=== PATIENT | male | born 1975 | race Caucasian/White ===

== ENCOUNTER 2022-01-07 14:30 | Emergency (ER) | payer OTHER ==
--- NOTE | 2022-01-07 15:04 | ED Physician Documentation ---
PD HPI FOCAL NEURO - Stated complaint Stated Complaint: RT LEG NUMBNESS/TINGLES - Chief complaint Chief Complaint: Neuro - History obtained from History obtained from: Patient, Family - Additional information Additional information: 46-year-old gentleman with history of syncope 4 years ago with Negative work-up, otherwise healthy.He has had 2 episodes in the last 2 days of leg numbness. Yesterday lasted for about an hour and a half and he had bilateral leg numbness especially anteriorly. It was associated with sensation of cramping and generalized unease and heart racing. It recurred today for about an hour. There is no associated back chest or abdominal pain. No significant headache. No weakness, numbness, or tingling in the arms, trunk, face. No saddle anesthesia or incontinence. Review of Systems Constitutional: denies: Fever, Chills Cardiac: denies: Chest pain / pressure, Palpitations Respiratory: denies: Dyspnea, Cough GI: denies: Abdominal Pain, Nausea, Vomiting PD PAST MEDICAL HISTORY - Past Medical History Past Medical History: Yes Cardiovascular: Other (syncope) - Present Medications Home Medications: Ambulatory Orders Medication Instructions Recorded Confirmed No Known Home Medications 01/07/22 01/07/22 - Allergies Allergies/Adverse Reactions: Allergies Allergy/AdvReac Type Severity Reaction Status Date / Time No Known Drug Allergies Allergy Verified 01/07/22 14:37 PD ED PE NORMAL - Vitals Vital signs reviewed: Yes - General General: Alert and oriented X 3, No acute distress - HEENT HEENT: PERRL, EOMI - Neck Neck: Supple, no meningeal sign, No bony TTP - Cardiac Cardiac: RRR, No murmur - Respiratory Respiratory: No respiratory distress, Clear bilaterally - Abdomen Abdomen: Normal bowel sounds, Soft, Non tender - Back Back: No CVA TTP, No spinal TTP - Derm Derm: Normal color, Warm and dry - Extremities Extremities: No edema, No calf tenderness / cord - Neuro Neuro: Alert and oriented X 3, No motor deficit, No sensory deficit, Normal speech, Other (normal pedal pulses, sensation throughout BLE, nl strength flex/ex foot, knees ankles, hips) Eye Opening: Spontaneous Motor: Obeys Commands Verbal: Oriented GCS Score: 15 Results - Vitals Vitals: Vital Signs - 24 hr 01/07/22 01/07/22 14:37 14:43 Temperature 36.5 C Heart Rate 70 70 Respiratory 16 20 Rate Blood Pressure 160/104 H 166/108 H O2 Saturation 98 99 Oxygen O2 Source Room air - EKG (time done) 1459 Rate: Rate (enter#) (65) Rhythm: NSR [place]: Normal Intervals: Normal NM QRS: Normal Ischemia: Non specific changes - Labs Labs: Laboratory Tests 01/07/22 01/07/22 15:25 15:25 WBC 7.2 RBC 5.25 Hgb 16.1 Hct 45.7 MCV 87.0 MCH 30.7 MCHC 35.2 RDW 13.2 Plt Count 212 MPV 8.5 Neut # (Auto) 4.3 Lymph # (Auto) 2.0 [place] # (Auto) 0.7 Eos # (Auto) 0.2 Baso # (Auto) 0.0 Absolute Nucleated RBC 0.00 Nucleated RBC % 0.0 Sodium 138 Potassium 3.7 Chloride 103 Carbon Dioxide 30 Anion Gap 5.0 L BUN 16 Creatinine 1.1 Estimated GFR (MDRD) 72 L Glucose 91 Calcium 9.1 Total Bilirubin 0.6 AST 23 ALT 23 Alkaline Phosphatase 112 Total Protein 7.2 Albumin 4.1 Globulin 3.1 Albumin/Globulin Ratio 1.3 PD MEDICAL DECISION MAKING - ED course ED course: 46-year-old gentleman with transient numbness and tingling of both legs associated with some vague systemic symptoms. Differential diagnosis would include sciatica, although he really does not have back pain and the symptoms were at least yesterday bilateral. Also spinal stenosis, but again no other symptoms of cauda equina or back pain. Could be some odd neurologic issue but probably does not merit emergent diagnosis. Remaining would be a vascular issue and will do CTA of chest and abdomen for same. CT angiography of the chest and abdomen were without pertinent diagnostic findings. Blood work was unremarkable. He had no recurrence of his symptoms while in the department. Departure - Departure Disposition: 01 Home, Self Care Clinical Impression: Paresthesia of bilateral legs Condition: Good Record reviewed to determine appropriate education?: Yes Instructions: ED Weakness [facility] Comments: If symptoms continue to recur, consider follow-up with a neurologist, if anything new or different happens please return for reevaluation.
[2022-01-07] MEDS ORDERED: IOPAMIDOL-300 50 ML VIAL ONE (15:28)
[2022-01-07] MEDS ORDERED: iohexoL-300 100 ML VIAL ONE (15:29)
[2022-01-07 15:30] LABS: BASOPHILS % (AUTO) 0.4 %; EOSINOPHILS # (AUTO) 0.2 10^3/uL (0.0-0.7); EOSINOPHILS % (AUTO) 2.7 %; HCT - HEMATOCRIT 45.7 % (42.0-52.0); HGB - HEMOGLOBIN 16.1 g/dL (14.0-18.0); LYMPHOCYTES % (AUTO) 27.5 %; MEAN CORPUSCULAR HEMOGLOBIN 30.7 pg (27.0-31.0); MEAN CORPUSCULAR HGB CONC 35.2 g/dL (32.0-36.0); MEAN PLATELET VOLUME 8.5 fL (7.4-11.4); MONOCYTES # (AUTO) 0.7 10^3/uL (0.0-1.0); MONOCYTES % (AUTO) 9.6 %; NEUTROPHILS # (AUTO) 4.3 10^3/uL (1.5-6.6); NEUTROPHILS % (AUTO) 59.5 %; PLT - PLATELET COUNT 212 10^3/uL (130-450); RED BLOOD COUNT 5.25 10^6/uL (4.70-6.10); RED CELL DISTRIBUTION WIDTH 13.2 % (12.0-15.0); WHITE BLOOD COUNT 7.2 x10^3/uL (4.8-10.8)
[2022-01-07 15:43] LABS: ALBUMIN 4.1 g/dL (3.2-5.5); ALBUMIN/GLOBULIN RATIO 1.3 (1.0-2.2); BILIRUBIN,TOTAL 0.6 mg/dL (0.2-1.0); CALCIUM 9.1 mg/dL (8.5-10.3); CREATININE 1.1 mg/dL (0.6-1.2); POTASSIUM 3.7 mmol/L (3.5-5.0); TOTAL PROTEIN 7.2 g/dL (6.7-8.2)
[2022-01-07] MEDS ORDERED: iohexoL-300 100 ML VIAL IVP ONE (16:04)
--- NOTE | 2022-01-07 16:13 | CT Report ---
PROCEDURE: ANGIO CHEST W/WO INDICATIONS: unwell, numb legs aorta protocol CONTRAST: IV CONTRAST: Isovue 300 ml: 100 PO CONTRAST: *NO PO CONTRAST TECHNIQUE: After the administration of intravenous contrast, 2 mm axial images were acquired from the pulmonary apices to the posterior costophrenic angles during the arterial phase. In addition, 1 mm lung kernel and 5 mm soft tissue kernel reconstructions were performed. 3-dimensional coronal oblique maximum int ensity projection (MIP) reformats, 8 mm axial MIP, and 5 mm coronal and sagittal MPR reformats were t hen performed through the thorax. For radiation dose reduction, the following was used: automated exp osure control, adjustment of mA and/or kV according to patient size. COMPARISON: CT angiogram abdomen and pelvis 01/07/2022 FINDINGS: Image quality: Secondary to contrast timing, distal pulmonary artery branches are suboptimally evalu ated. Pulmonary arteries: Pulmonary arteries are normal in size, and demonstrate no intraluminal filling d efects to suggest central pulmonary embolism. Lungs and pleura: Lungs are clear. No pleural effusions or pneumothorax. Central and peripheral ai rways are patent. Mediastinum: Heart size is normal, without pericardial effusion. No mediastinal or hilar adenopathy . Thoracic aorta is normal in caliber and enhancement. Esophagus is normal in caliber, without hiat al hernia. Bones and chest wall: No suspicious bony lesions. Ribs and thoracic spine appear intact throughout. No axillary or supraclavicular adenopathy. The thyroid is normal in size and there are no incident al findings. Abdomen: Visualized upper abdominal solid organs appear normal in the early arterial phase of enhanc ement. IMPRESSION: Lungs are clear. No central pulmonary embolism. CLINICAL RECOMMENDATION STATEMENTS: In patients <35 years with an ITN detected on CT, MRI, or extrathyroidal ultrasound, the Committee re commends further evaluation with dedicated thyroid ultrasound if the nodule is "e1 cm and has no susp icious imaging features, and if the patient has normal life expectancy. In patients "e35 years with an ITN detected on CT, MRI, or extrathyroidal ultrasound, the Committee r ecommends further evaluation with dedicated thyroid ultrasound if the nodule is "e1.5 cm and has no s uspicious imaging features, and if the patient has normal life expectancy. (ACR, 2014) Reviewed by: Mary Kay Deleon MD on 01/07/2022 4:11 PM PDT Approved by: Mary Kay Deleon MD on 01/07/2022 4:11 PM PDT Station ID: [id number]
--- NOTE | 2022-01-07 16:18 | CT Report ---
PROCEDURE: ANGIO ABDOMEN/PELVIS W INDICATIONS: unwell, numb legs aorta protocol CONTRAST: IV CONTRAST: Isovue 300 ml: 100 PO CONTRAST: *NO PO CONTRAST TECHNIQUE: After the administration of intravenous contrast, 2.5 mm thick sections acquired from the diaphragm t o the symphysis. 10 mm maximum-intensity projection (MIP) reformats were then acquired. For radiati on dose reduction, the following was used: automated exposure control, adjustment of mA and/or kV ac cording to patient size. COMPARISON: CT chest 01/07/2022 FINDINGS: Image quality: Excellent. Aorta: No evidence of aneurysmal dilation, hemodynamically significant stenosis, vascular occlusion or dissection throughout the visualized course of the lower thoracic, abdominal and pelvic aorta. Mesenteric arteries: Celiac trunk, superior and inferior mesenteric arteries appear patent. Right pelvic arteries: Widely patent. Left pelvic arteries: Widely patent. Extravascular soft tissues: Lung bases are clear. Heart size is normal. Liver and spleen are paras l in size and enhancement. Gallbladder is unremarkable. Biliary system is non dilated. Pancreas en hances normally. No adrenal nodules. Kidneys are normal in size and enhancement, without hydronephr osis. Non opacified bowel loops are normal in wall thickness and caliber. No free fluid or air. No retroperitoneal or mesenteric adenopathy. Trace fat-containing ventral hernia is present. No suspici ous bony lesions. No vertebral body compression fractures. IMPRESSION: No evidence of dissection, aneurysmal dilation, hemodynamically significant stenosis or vascular occl usion of the visualized lower thoracic, abdominal and pelvic aorta. No renal or ureteral calculi. No obstruction. Reviewed by: Mary Kay Deleon MD on 01/07/2022 4:17 PM PDT Approved by: Mary Kay Deleon MD on 01/07/2022 4:17 PM PDT Station ID: [id number]
[2022-01-07 18:37] VITALS: BP 145/95
== END 2022-01-07 16:57 | disposition home or self-care (01) ==
LOC: ED 14:30
DX: R20.2 Paresthesia of skin (principal)
CPT/HCPCS: 36415; 71275; 74174; 80053; 85025; 93005; 99282; 99284; Q9967